=== PATIENT | male | born 1975 | race Caucasian/White ===

== ENCOUNTER 2016-10-27 23:30 | Emergency (ER) | payer MEDICAID ==
[~2016-10-27] VITALS: Ht 188 cm; Wt 72.8 kg
[~2016-10-27 23:30] MED LIST: CYCL-36 PO; IBUP800T23 PO
[2016-10-27 23:41] VITALS: BP 142/93; PULSE 85; RESP 18; TEMP 98; O2SAT 99
[2016-10-28] MEDS ORDERED: TRAM50TA PO (00:44)
[2016-10-28] MEDS ORDERED: PENI500T PO (00:44)
--- NOTE | 2016-10-28 00:44 | PD ---
HPI Chief Complaint: Oral / Dental Pain or Problem Time Seen by Provider: 00:37 Travel History International Travel<30 days: No Contact w/Intl Traveler<30days: No Traveled to known affect area: No History of Present Illness HPI 41-year-old male presents to the emergency department for complaint of right- sided jaw and dental pain. Symptoms have been present for 2 hours. Patient is unable to identify exacerbating or alleviating factors. Patient has been seen by dentist and told he has impaction of the [place] teeth and needs to have dental extraction. Patient states that he did respond well to antibiotic in the past and has already taken 800 mg of ibuprofen and 2 extra strength acetaminophen without symptom relief. Patient states pain is referred to his ear. Patient states primary dental pain is coming from his right lower molars. Patient is not diabetic. Patient denies injury. Patient has no chronic medical conditions does admit to tobacco use. PFSH Past Medical History Narrative Medical Negative past medical history negative surgical history; tobacco use; nursing notes reviewed Hx Anticoagulant Therapy: No Cardiovascular Problems: No Chemotherapy: No Cerebrovascular Accident: No Diabetes: No Respiratory: No Social History Alcohol Use: No Tobacco Use: Yes (1 ppd) Substance Use: No Allergies-Medications (Allergen,Severity, Reaction): Coded Allergies: No Known Allergies (Verified , 10/28/16) Reported Meds & Prescriptions Reported Meds & Active Scripts Active Penicillin V Potassium 500 Mg Tab 500 Mg PO Q6H 7 Days Tramadol (Tramadol HCl) 50 Mg Tab 50 Mg PO Q6H PRN Review of Systems Except as stated in HPI: all other systems reviewed are Neg General / Constitutional: No: Fever HENT: Positive: Dental Difficulties, Earache, No: Headaches Cardiovascular: No: Chest Pain or Discomfort Respiratory: No: Shortness of Breath Gastrointestinal: No: Abdominal Pain Genitourinary: No: Flank Pain Musculoskeletal: No: Pain Skin: No Lumps Hematologic/Lymphatic: No: Lymph Node Enlargement Physical Exam Narrative GENERAL: Well-developed well-nourished male in no acute distress no respiratory distress SKIN: Warm and dry. HEAD: Normocephalic. EYES: No scleral icterus. No injection or drainage. ENT: Mucous members moist airway is patent multiple amalgams in place as well as multiple dental caries and #31 tooth with large area of dental decay and gingival hypertrophy tenderness to palpation; no trismus. NECK: Supple, trachea midline. No JVD or lymphadenopathy. CARDIOVASCULAR: Regular rate and rhythm without murmurs, gallops, or rubs. RESPIRATORY: Breath sounds equal bilaterally. No accessory muscle use. GASTROINTESTINAL: Abdomen soft, non-tender, nondistended. MUSCULOSKELETAL: No cyanosis, or edema. BACK: Nontender without obvious deformity. No CVA tenderness. Data Data Last Documented VS Vital Signs Date Time Temp Pulse Resp B/P Pulse Ox O2 Delivery O2 Flow Rate FiO2 10/28/16 01:29 77 16 147/82 99 10/27/16 23:41 98.0 Orders Tramadol (Ultram) (10/28/16 00:45) Penicillin V Potassium (Veetids) (10/28/16 00:45) MDM Medical Decision Making Medical Screen Exam Complete: Yes Emergency Medical Condition: Yes Medical Record Reviewed: Yes Differential Diagnosis Dentalgia, dental abscess, trigeminal neuralgia, impacted third molars, otitis media Narrative Course Patient presents with dentalgia after recent evaluation by dentist who has been told that he needs to have dental extraction of his third molars which require surgical excision. Patient presents with pain. Patient reportedly is already taken nonsteroidal anti-inflammatory and acetaminophen will administer tramadol and first dose of oral antibiotic and encouraged patient to return to his dentist. Diagnosis Primary Impression: Dentalgia Referrals: Dentist call for appointment Patient Instructions: General Instructions Additional Instructions: Complete course of antibiotic Take pain medication as prescribed as needed May continue to use as tolerated ibuprofen per package directions and/or acetaminophen Follow-up with dentist Return to emergency department as needed Med/Other Pt SpecificInfo: Prescription(s) given Scripts Penicillin V Potassium 500 Mg [id number] Mg PO Q6H 7 Days Ref 0 Prov:Mily Syed MD 10/28/16 Tramadol 50 Mg Tab50 Mg PO Q6H PRN (PAIN) #12 TAB Ref 0 Prov:Mily Syed MD 10/28/16 Disposition: DISCHARGE HOME Condition: Stable Mily Syed MD Oct 28, 2016 00:44
[2016-10-28] MEDS ORDERED: PENICILLIN V POTASSIUM 500 MG TAB PO ONE (00:45)
[2016-10-28] MEDS ORDERED: traMADol HCL 50 MG TAB PO ONE (00:45)
[2016-10-28 01:29] VITALS: BP 147/82
== END 2016-10-28 01:30 | disposition home or self-care (01) ==
LOC: PHED 23:30
DX: K08.89 Other specified disorders of teeth and supporting structures (principal); F17.200 Nicotine dependence, unspecified, uncomplicated
CPT/HCPCS: 99282